=== PATIENT | female | born 1990 | race Two or more races ===

== ENCOUNTER 2020-01-23 17:43 | Outpatient (REF) | payer MEDICAID, SELFPAY | END 2020-01-23 17:44 | disposition home or self-care (01) | LOC: HO.LAB 17:43 | PROVIDERS: Visit Provider Internal Medicine | DX: Z20.828 Contact with and (suspected) exposure to other viral communicable diseases (principal) | CPT/HCPCS: 87635 ==

== ENCOUNTER 2020-01-25 17:26 | Outpatient (REF) | payer MEDICAID, SELFPAY | END 2020-01-25 17:27 | disposition home or self-care (01) | LOC: HO.LAB 17:26 | PROVIDERS: Visit Provider Internal Medicine | DX: Z20.828 Contact with and (suspected) exposure to other viral communicable diseases (principal) | CPT/HCPCS: 87635 ==

== ENCOUNTER 2020-07-01 14:15 | Outpatient (REF) | payer MEDICAID, SELFPAY ==
[2020-07-02 11:14] LABS: SARS COV2 PCR INHOUSE NEGATIVE (Negative)
== END 2020-07-01 14:16 | disposition home or self-care (01) ==
LOC: HO.LAB 14:15
PROVIDERS: Visit Provider Internal Medicine
DX: Z20.822 Contact with and (suspected) exposure to COVID-19 (principal)
CPT/HCPCS: C9803; U0003

== ENCOUNTER 2021-02-23 18:43 | Emergency (ER) | payer MEDICAID, SELFPAY ==
[2021-02-23 21:08] VITALS: BP 151/93; PULSE 93; RESP 16; TEMP 36.3; O2SAT 97; BMI 44.2
--- NOTE | 2021-02-23 21:10 | ED_ITS ---
HPI - URI/Sore Throat General Chief Complaint: Upper Respiratory Symptoms Stated Complaint: Flu like symptoms Time Seen by Provider: 02/23/21 21:10 Source: patient Mode of arrival: ambulatory Limitations: no limitations History of Present Illness HPI Narrative: 30-year-old female previously healthy here with complaints of cough for about 5 days with sick contact from both of her children. no fevers, chills, shortness of breath or chest pain. Related Data Allergies Allergy/AdvReac Type Severity Reaction Status Date / Time No Known Allergies Allergy Unverified 12/20/19 17:21 Review of Systems Review of Systems: Yes all other systems are reviewed and are negative Constitutional: Constitutional: Reports no additional constitutional complaints, Denies body ache(s), Denies chills, Denies fever(s), Denies headache (s) and Denies weakness Eyes: Eyes: Reports no additional eye complaints and Denies change in vision ENT: Reports system reviewed and no additional complaints, except as documented, Denies dizziness, Denies headache(s), Denies nasal congestion, Denies nasal discharge and Denies neck pain Cardiovascular: Cardiovascular: Reports no additional cardiovascular complaints, Denies chest pain, Denies leg edema and Denies dyspnea Respiratory: Respiratory: Reports no additional respiratory complaints, Reports cough and Denies dyspnea Gastrointestinal: Gastrointestinal: Reports no additional gastrointestinal complaints, Denies abdominal pain, Denies diarrhea, Denies nausea and Denies vomiting Genitourinary: Genitourinary: Reports no additional female genitourinary complaints and Denies urinary incontinence Musculoskeletal: Musculoskeletal: Reports no additional musculoskeletal complaints, Denies back pain, Denies arthralgias, Denies joint swelling, Denies neck pain, Denies numbness and Denies tingling Integumentary/Breasts: Skin/Breast: Reports system reviewed and no additional complaints, except as docu and Denies rash Neurologic: Reports system reviewed and no additional complaints, except as documented, Denies Abnormal speech present, Denies dizziness, Denies headache(s), Denies numbness, Denies tingling and Denies weakness PMFSH Past Medical History Attestation statement: The following information was validated with the patient. Source: old records reviewed and nursing notes reviewed Social History Social History Advance Directives: No Advance Directives Information Provided: No Patient : No Physical Exam Vital Signs: Vital Signs: Last Vital Signs Temp 97.4 F 02/23/21 21:08 Pulse 93 02/23/21 21:08 Resp 16 02/23/21 21:08 BP 151/93 H 02/23/21 21:08 Pulse Ox 97 02/23/21 21:08 Body Mass Index 44.2 Const: General: cooperative, healthy appearing, comfortable and no acute distress Orientation/consciousness: patient oriented x3 Limitations: no limitations HENMT: Head: Yes normal to inspection Ears: hearing grossly normal bilaterally General nose exam: Normal external nose present Face and sinus: Yes normal facial exam Mouth: Normal oral and palatal mucosa present Throat: Yes posterior oropharynx normal Eyes: General: appearance normal, both eyes and all related structures Pupils: Equal, round and reactive pupils present Neck: Neck: Yes normal visual inspection Chest: Chest palpation & inspection: normal inspection of the chest Resp: Effort & Inspection: normal respiratory effort Auscultation: clear to auscultation bilaterally Cardio: Rate: regular rate Rhythm: regular rhythm Peripheral pulses: Peripheral pulses 2+ throughout GI: Inspection: Yes normal to inspection Palpation (GI): Soft to palpation and nontender Auscultation: normal bowel sounds Back/Spine/Pelvis: Thoracic/Lumbar Spine: thoracic and lumbar spine normal to inspection Skin: General skin exam: no rashes or lesions noted Neuro: General: patient oriented x3, no focal motor deficits and normal sensation to monofilament Cranial nerves: Yes Equal, round and reactive pupils present Cognition (Neuro): normal cognition Speech: No Abnormal speech present Gait exam (Neuro): Normal gait present Motor exam (neuro): 5/5 motor strength present throughout Extrem: General: Yes normal to inspection Course Course Course Narrative: URI symptoms for 5 days with sick contact. Will check COVID screen exam is benign, nontoxic-appearing, lung sounds are clear 2144- COVID screen is negative. Likely viral. Patient is well-appearing. Reviewed worrisome signs and symptoms of when to return to the emergency department. Comfortable discharge home. MDM - URI/Sore Throat Medical Records Attestation: I reviewed the patient's medical records. Lab Data Attestation: I reviewed the patient's lab results. Labs: Lab Results 02/23/21 Range/Units 20:34 Influenza Type A (PCR) NEGATIVE (Negative) Influenza Type B (PCR) NEGATIVE (Negative) RSV RNA Qual (PCR) NEGATIVE (Negative) SARS-CoV-2 RNA (RT-PCR) NEGATIVE (Negative) Discharge Plan Discharge Clinical Impression: Viral infection Patient Disposition: Home, Self-Care Instructions: Viral Syndrome (ED) Additional Instructions: increase fluids, rest your test for COVID, flu and RSV are negative Retest in 48 hours for persistent symptoms Referrals: Physician,Unknown J [Primary Care Provider] - 2 days
[2021-02-23 21:19] LABS: Influenza A PCR NEGATIVE (Negative); Influenza B PCR NEGATIVE (Negative); Resp Syncy Virus RNA Qual PCR NEGATIVE (Negative); SARS COV2 PCR INHOUSE NEGATIVE (Negative)
== END 2021-02-23 22:29 | disposition home or self-care (01) ==
PROVIDERS: Emergency Provider Emergency Medicine
DX: B34.9 Viral infection, unspecified (principal); Z20.822 Contact with and (suspected) exposure to COVID-19; R05.9 Cough, unspecified
CPT/HCPCS: 0241U; 36415; 99283

== ENCOUNTER 2021-10-18 21:49 | Emergency (ER) | payer MEDICAID, SELFPAY ==
[2021-10-18 22:32] VITALS: BP 136/63; PULSE 83; RESP 18; TEMP 36.1; O2SAT 98; BMI 53.1
[2021-10-18 22:57] LABS: Strep A Nucleic Acid Negative (Negative)
[2021-10-18 23:08] LABS: COVID-19 Test Negative (Negative)
--- NOTE | 2021-10-19 01:38 | ED.URI ---
HPI - URI/Sore Throat General Chief Complaint: Upper Respiratory Symptoms Stated Complaint: gen fatigue, cp? Time Seen by Provider: 10/19/21 01:15 Source: patient Mode of arrival: ambulatory History of Present Illness HPI Narrative: 31-year-old female without significant past medical history presents with 2 days of dry cough, sore throat, but denies any ear pain/ fever/ chills/body aches/headache and otherwise denies GI or symptoms. She does endorse that her home COVID testing was negative. Related Data Allergies Allergy/AdvReac Type Severity Reaction Status Date / Time No Known Allergies Allergy Unverified 12/20/19 17:21 Review of Systems Review of Systems: Pertinent positives and negatives as stated in HPI 10 point review of systems is otherwise negative. [facility] Past Medical History Source: nursing notes reviewed Social History Social History Advance Directives: No Advance Directives Information Provided: No Physical Exam Vital Signs: Vital Signs: Last Vital Signs Temp 97.0 F 10/18/21 22:32 Pulse 83 10/18/21 22:32 Resp 18 10/18/21 22:32 BP 136/63 10/18/21 22:32 Pulse Ox 98 10/18/21 22:32 O2 Del Method 10/18/21 22:32 BMI result Body Mass Index 53.1 VITAL SIGNS: Reviewed. GENERAL: Well developed, well nourished, in no acute distress. HEAD: Normocephalic/atraumatic EYES: PERRLA, EOMI EARS: Ext canals without abnormality, TMs non-bulging and non-erythematous NOSE: Nares patent bilateral OROPHARYNX: no oral lesions noted, posterior pharynx clear and non-erythematous without noted tonsillar enlargement/erythema/exudates NECK: Supple, no adenopathy LUNGS: Normal breath sounds. No adventitious sounds or accessory muscle use. SpO2<98> CARDIOVASCULAR: Regular rate and rhythm without noted murmurs ABDOMEN: Soft, non-tender, non-distended with bowel sounds. MUSCULOSKELETAL: No tenderness, deformities, or effusions noted on gross inspection. EXTREMITIES: No cyanosis, clubbing or edema. SKIN: Inspection of the skin reveals no rashes NEUROLOGIC: Alert and oriented x 4. Strength and sensation to light touch were grossly intact x 4. Course Course Course Narrative: 31-year-old female with history and clinical presentation consistent with URI/ viral symptoms and on review of all investigations there is no evidence to suggest strep throat or COVID-19. Patient is afebrile, easy breathing with good oxygenation on room air and will otherwise be discharged home in stable condition. MDM - URI/Sore Throat Lab Data Labs: Lab Results 10/18/21 10/18/21 Range/Units 22:36 22:36 COVID-19 ([facility]) Negative (Negative) COVID-19 Clin Com See Note S. pyogenes GrpA CHARITO Negative (Negative) Discharge Plan Discharge Clinical Impression: Upper respiratory infection Patient Disposition: Home, Self-Care Instructions: Upper Respiratory Infection (ED) Additional Instructions: Recommend [id number] Tylenol/ ibuprofen as needed for pain control , headache, sore throat. Recommend bedside cool mist humidifier. You should continue to test for COVID-19 for the next 2 days. Return to the ER if you have worsening symptoms.
[2021-10-19 01:51] VITALS: BP 116/50; PULSE 76; TEMP 37.1; O2SAT 98
[2021-10-19 01:58] LABS: Appearance Urine CLEAR; Color Urine YELLOW; Glucose Urine UA NEG (NEG); Leukocyte Esterase Urine NEG (NEG); Nitrite Urine NEG (NEG); Specific Gravity - Urine >= 1.030 (1.005-1.025); Urine Blood NEG (NEG); Urine Ketones NEG (NEG); Urine Protein NEG (NEG-TRACE)
[2021-10-19 02:01] LABS: UPreg QC Valid YES; Urine Pregnancy NEGATIVE (NEGATIVE)
== END 2021-10-19 02:03 | disposition home or self-care (01) ==
PROVIDERS: Emergency Provider Student in an Organized Health Care Education/Training Program
DX: J06.9 Acute upper respiratory infection, unspecified (principal); Z20.822 Contact with and (suspected) exposure to COVID-19; Z79.899 Other long term (current) drug therapy
CPT/HCPCS: 81003; 81025; 87635; 87651; 99283

== ENCOUNTER 2022-08-22 22:31 | Emergency (ER) | payer MEDICAID, SELFPAY ==
[2022-08-22 22:36] VITALS: BP 173/97; PULSE 90; RESP 20; TEMP 37; O2SAT 100; BMI 50.8
[2022-08-22 22:59] LABS: MANUAL DIFF FLAG NO
[2022-08-22 23:01] LABS: Basophils Percent Auto 0.2 % (0-2); Eosinophils Percent Auto 0.3 % (0-4); Hematocrit 38.4 % (37.0-47.0); Hemoglobin 12.5 g/dl (12.0-16.0); Imm Gran Abs Auto 0.04 X10*3/uL (0.00-0.03); Imm Gran Pct Auto 0.4 % (0.0-0.4); Lymphocytes Absolute Auto 2.4 X10*3/uL (1.2-4.9); Lymphocytes Percent Auto 21.2 % (20-40); Mean Corpuscular HGB Conc 32.6 g/dl (31.0-35.0); Mean Corpuscular Volume 82.9 fL (80.0-98.0); Mean Platelet Volume 10.1 fL (9.4-12.3); Monocytes Absolute Auto 0.4 X10*3/uL (0.1-1.2); Monocytes Percent Auto 3.8 % (2-11); Neutrophils Absolute Auto 8.3 x10*3/uL (2.0-8.3); Neutrophils Percent Auto 74.1 % (45-73); Platelet Count 284 X10*3/uL (160-400); Red Blood Count 4.63 X10*6/uL (4.20-5.50); Red Cell Distribution Width 13.7 % (11.0-16.0); White Blood Count 11.1 X10*3/uL (4.8-10.8)
[2022-08-22 23:02] LABS: Appearance Urine Clear; Color Urine Yellow; Glucose Urine UA Negative (Negative); Leukocyte Esterase Urine Trace (Negative); Nitrite Urine Negative (Negative); UMIC TRIGGER UACC YES; Urine Blood Large (3+) (Negative); Urine Ketones Negative (Negative); Urine Protein Negative (Neg-Trace)
[2022-08-22 23:05] LABS: Bacteria Urine 1+ (None Seen); Hyaline Casts Urine 0-2 /LPF (0-2); RBC Urine >20 /HPF (0-2); WBC Urine 0-5 /HPF (0-5)
[2022-08-22 23:07] LABS: UPreg QC Valid YES; Urine Pregnancy NEGATIVE (NEGATIVE)
[2022-08-22 23:21] LABS: Alanine Aminotransferase 35 U/L (0-31); Albumin Level 4.4 g/dL (3.5-5.0); Alkaline Phosphatase 64 U/L (39-117); Anion Gap 11 (12-20); Aspartate Amino Transferase 23 U/L (5-31); Bilirubin Direct 0.1 mg/dL (0.0-0.5); Bilirubin Total 0.4 mg/dL (0.0-1.0); Blood Urea Nitrogen 10 mg/dL (9-16); Calcium 9.5 mg/dL (8.4-10.2); Carbon Dioxide 25 mmol/L (22-29); Chloride 104 mmol/L (96-108); Creatinine Clr Calc Pharmacy 126.4; Estimated Glomerular Filt Rate > 60; Glucose Random 135 mg/dL (60-115); Lipase 21 U/L (8-78); Sodium 136 mmol/L (135-145); Total Protein 7.2 g/dL (6.5-8.0)
[2022-08-22 23:22] LABS: HCG Quantitative < 2 mIU/mL
[2022-08-22 23:40] VITALS: BP 132/63; PULSE 76; RESP 18; TEMP 36.9; O2SAT 100
--- NOTE | 2022-08-22 23:48 | ED.FEMALEGU ---
HPI - Female Genitourinary General Chief complaint: Vaginal Bleeding Stated complaint: possible miscarriage, abd pain Time Seen by Provider: 08/22/22 23:44 Source: patient Mode of arrival: ambulatory Limitations: no limitations History of Present Illness HPI Narrative: Patient comes to the emergency room complaining of vaginal bleeding. Patient states that she passed a blood clot earlier today. In triage, patient stated that she is changing her pad every hour. However, when I spoke to the patient she denied bleeding this much. Patient states she thinks this may be a miscarriage, she had a positive test at home 2 weeks ago. Patient complaining of abdominal cramping. Denies fever chills, no dysuria, no flank pain. Related Data Allergies Allergy/AdvReac Type Severity Reaction Status Date / Time No Known Allergies Allergy Verified 08/22/22 22:39 Review of Systems Review of Systems: Constitutional : No Weight loss, No Fever, No Chills, No Night Sweats, No Fatigue, No Malaise ENT/Mouth : No Hearing loss, No Ear Pain, No Nasal Congestion, No Sinus Pain, No Hoarseness, No sore throat, No Rhinorrhea, No Swallowing Difficulty Eyes: No Eye Pain, No Swelling, No Redness, No Foreign Body, No Discharge, No Vision Changes Cardiovascular : No Chest Pain, No SOB, No Dyspnea on Exertion, No Orthopnea, No Edema, No Palpitations Respiratory : No Cough, No Sputum, No Wheezing, No Smoke Exposure, No Dyspnea Gastrointestinal : No Nausea, No Vomiting, No Diarrhea, No Constipation, mild abdominal cramping, No Hematochezia, No Melena Genitourinary : Complaining of vaginal bleeding, No Dysuria, No Urinary Frequency, No Hematuria, No Urinary Incontinence, No Urgency, No Flank Pain, No Urinary Flow Changes, No Hesitancy Musculoskeletal : No joint pain, No Myalgias, No Joint Swelling Skin : No Skin Lesions, No rash Neuro : No Weakness, No Numbness, No Paresthesias, No Loss of Consciousness, No Dizziness, No Headache Psych : No Anxiety/Panic, No Depression, No SI/HI/AH/VH, No Social Issues, Heme/Lymph: No Bruising, No Bleeding,No Lymphadenopathy Endocrine : No Polyuria, No Polydipsia, No Temperature Intolerance Physical Exam Vital Signs: Vital Signs: Last Vital Signs Temp 98.4 F 08/22/22 23:40 Pulse 76 08/22/22 23:40 Resp 18 08/22/22 23:40 BP 132/63 08/22/22 23:40 Pulse Ox 100 08/22/22 23:40 O2 Del Method Room Air 08/22/22 23:40 BMI result Body Mass Index 50.8 Const: Other: Appearance: Alert. Oriented X3. No acute distress. Eyes: Pupils equal, round and reactive to light. ENT: Pharynx normal. Neck: Normal inspection. Neck supple. No lymph nodes noted. No crepitus CVS: Normal heart rate and rhythm. Pulses normal. Normal S1 and S2 Respiratory: No respiratory distress. Breath sounds normal. No Wheezing. No rales Abdomen: Soft and nontender. No rigidity. No distention. Skin: Skin warm and dry. Normal skin color. Normal skin turgor. Extremities: No lower extremity edema. No Lacerations. No Rash Neuro: Oriented X 3. No motor deficit. No sensory deficit. Moving all extremities. No slurred speech. CN 2 through 12 grossly intact Psych: calm, cooperative, normal affect Medical Decision Making Medical Decision Making [facility] Narrative: -I discussed with the patient that the beta hCG level quant is negative. Patient not , likely having her normal menstrual period, usually, patient does menstruate around this time of the month. -patient 1 dose of morphine 2 mg, patient ready for discharge. -patient was happy to be informed that she is not Lab Data [facility] Lab Attestation statement: I reviewed the patient's lab results. 08/22/22 22:50 08/22/22 22:50 Labs: Lab Results 08/22/22 08/22/22 08/22/22 Range/Units 22:50 22:50 22:50 WBC 11.1 H (4.8-10.8) X10*3/uL RBC 4.63 (4.20-5.50) X10*6/uL Hgb 12.5 (12.0-16.0) g/dl Hct 38.4 (37.0-47.0) % MCV 82.9 (80.0-98.0) fL MCH 27.0 (27.0-33.0) pg MCHC 32.6 (31.0-35.0) g/dl RDW 13.7 (11.0-16.0) % Plt Count 284 (160-400) X10*3/uL MPV 10.1 (9.4-12.3) fL Immature Gran % (Auto) 0.4 (0.0-0.4) % Neut % (Auto) 74.1 H (45-73) % Lymph % (Auto) 21.2 (20-40) % [place] % (Auto) 3.8 (2-11) % Eos % (Auto) 0.3 (0-4) % Baso % (Auto) 0.2 (0-2) % Lymph # (Auto) 2.4 (1.2-4.9) X10*3/uL [place] # (Auto) 0.4 (0.1-1.2) X10*3/uL Eos # (Auto) 0.0 (0.0-0.4) X10*3/uL Baso # (Auto) 0.0 (0.0-0.2) X10*3/uL Abs Immat Gran (auto) 0.04 H (0.00-0.03) X10*3/uL Absolute Neuts (auto) 8.3 (2.0-8.3) x10*3/uL Absolute Nucleated RBC 0.000 (0.0-0.012) X10*3/uL Nucleated RBC % (auto) 0.0 (0.0-0.2) /100WBC Sodium 136 (135-145) mmol/L Potassium 4.0 (3.3-5.1) mmol/L Chloride 104 (96-108) mmol/L Carbon Dioxide 25 (22-29) mmol/L Anion Gap 11 L (12-20) BUN 10 (9-16) mg/dL Creatinine 0.85 (0.5-1.4) mg/dL Estim Creat Clear Calc 126.4 Estimated GFR > 60 Random Glucose 135 H (60-115) mg/dL Calcium 9.5 (8.4-10.2) mg/dL Total Bilirubin 0.4 (0.0-1.0) mg/dL Direct Bilirubin 0.1 (0.0-0.5) mg/dL AST 23 (5-31) U/L ALT 35 H (0-31) U/L Alkaline Phosphatase 64 (39-117) U/L Total Protein 7.2 (6.5-8.0) g/dL Albumin 4.4 (3.5-5.0) g/dL Lipase 21 (8-78) U/L Beta HCG, Quant < 2 mIU/mL Urine Color Yellow Urine Appearance Clear Urine pH 7.0 (5.0-9.0) Ur Specific [place] 1.020 (1.005-1.025) Urine Protein Negative (Neg-Trace) mg/dL Urine Glucose (UA) Negative (Negative) mg/dL Urine Ketones Negative (Negative) mg/dL Urine Blood Large (3+) H (Negative) Urine Nitrite Negative (Negative) Ur Leukocyte Esterase Trace H (Negative) Urine RBC >20 H (0-2) /HPF Urine WBC 0-5 (0-5) /HPF Ur Squamous Epith Cells 6-10 (0-2) /HPF Urine Bacteria 1+ (None Seen) Hyaline Casts 0-2 (0-2) /LPF Urine Test (NEGATIVE) 08/22/22 Range/Units 22:50 WBC (4.8-10.8) X10*3/uL RBC (4.20-5.50) X10*6/uL Hgb (12.0-16.0) g/dl Hct (37.0-47.0) % MCV (80.0-98.0) fL MCH (27.0-33.0) pg MCHC (31.0-35.0) g/dl RDW (11.0-16.0) % Plt Count (160-400) X10*3/uL MPV (9.4-12.3) fL Immature Gran % (Auto) (0.0-0.4) % Neut % (Auto) (45-73) % Lymph % (Auto) (20-40) % [place] % (Auto) (2-11) % Eos % (Auto) (0-4) % Baso % (Auto) (0-2) % Lymph # (Auto) (1.2-4.9) X10*3/uL [place] # (Auto) (0.1-1.2) X10*3/uL Eos # (Auto) (0.0-0.4) X10*3/uL Baso # (Auto) (0.0-0.2) X10*3/uL Abs Immat Gran (auto) (0.00-0.03) X10*3/uL Absolute Neuts (auto) (2.0-8.3) x10*3/uL Absolute Nucleated RBC (0.0-0.012) X10*3/uL Nucleated RBC % (auto) (0.0-0.2) /100WBC Sodium (135-145) mmol/L Potassium (3.3-5.1) mmol/L Chloride (96-108) mmol/L Carbon Dioxide (22-29) mmol/L Anion Gap (12-20) BUN (9-16) mg/dL Creatinine (0.5-1.4) mg/dL Estim Creat Clear Calc Estimated GFR Random Glucose (60-115) mg/dL Calcium (8.4-10.2) mg/dL Total Bilirubin (0.0-1.0) mg/dL Direct Bilirubin (0.0-0.5) mg/dL AST (5-31) U/L ALT (0-31) U/L Alkaline Phosphatase (39-117) U/L Total Protein (6.5-8.0) g/dL Albumin (3.5-5.0) g/dL Lipase (8-78) U/L Beta HCG, Quant mIU/mL Urine Color Urine Appearance Urine pH (5.0-9.0) Ur Specific [place] (1.005-1.025) Urine Protein (Neg-Trace) mg/dL Urine Glucose (UA) (Negative) mg/dL Urine Ketones (Negative) mg/dL Urine Blood (Negative) Urine Nitrite (Negative) Ur Leukocyte Esterase (Negative) Urine RBC (0-2) /HPF Urine WBC (0-5) /HPF Ur Squamous Epith Cells (0-2) /HPF Urine Bacteria (None Seen) Hyaline Casts (0-2) /LPF Urine Test NEGATIVE (NEGATIVE) Discharge Plan Discharge Clinical Impression: Vaginal bleeding Patient Disposition: Home, Self-Care Additional Instructions: Please follow-up with your primary care physician tomorrow. If you have any worsening or new symptoms, please return to the emergency room or call 911
[2022-08-23] MEDS: Morphine Sulfate 2 MG/ML CARTRIDGE IM (00:35)
== END 2022-08-23 00:39 | disposition home or self-care (01) ==
PROVIDERS: Emergency Provider Emergency Medicine
DX: N93.9 Abnormal uterine and vaginal bleeding, unspecified (principal); Z79.899 Other long term (current) drug therapy
CPT/HCPCS: 36415; 80048; 80076; 81001; 81003; 81025; 83690; 84702; 85025; 96372; 99283; 99284; J2270

== ENCOUNTER 2022-10-10 23:06 | Emergency (ER) | payer MEDICAID, SELFPAY ==
[2022-10-10 23:07] VITALS: BP 157/101; PULSE 101; RESP 16; TEMP 36.7; O2SAT 100; BMI 50.5
--- NOTE | 2022-10-11 00:17 | MHC.EDTECH ---
Labs and UACC obtained in triage area, sent to lab
[2022-10-11 00:45] LABS: Anion Gap 14 (12-20); Blood Urea Nitrogen 13 mg/dL (9-16); Calcium 10.2 mg/dL (8.4-10.2); Carbon Dioxide 24 mmol/L (22-29); Chloride 106 mmol/L (96-108); Creatinine Clr Calc Pharmacy 138.9; Estimated Glomerular Filt Rate > 60; Glucose Random 91 mg/dL (60-115); Potassium 3.6 mmol/L (3.3-5.1); Sodium 140 mmol/L (135-145)
--- NOTE | 2022-10-11 01:06 | PC.NURSE ---
Called patient @ 0100 in the WR with no response.
[2022-10-11 01:54] VITALS: BP 140/73; PULSE 88; RESP 19; TEMP 36.6; O2SAT 99
[2022-10-11 03:29] VITALS: BP 129/74; PULSE 85; RESP 18; TEMP 36.4; O2SAT 97
--- NOTE | 2022-10-11 03:56 | ED.GENADULT ---
HPI - General Adult General Chief complaint: General Medical Stated complaint: Flank pain Time Seen by Provider: 10/11/22 03:55 Source: patient Mode of arrival: ambulatory Limitations: no limitations History of Present Illness HPI narrative: 32-year-old female who presents emergency department for evaluation of frequency, urgency, dysuria and right flank. Patient states that she had gradual onset of right flank pain yesterday morning. She describes the pain is a stabbing sensation which is moderate intensity. Patient also noted urinary frequency and dysuria. She denied fever, chills, nausea, vomiting, diarrhea. She states that her symptoms feel similar to her urinary tract infection that she had in the past. She states she has not had frequent urinary tract infections and cannot remember when she last had a urinary tract infection. Related Data Previous Rx's Medication Instructions Recorded acetaminophen 500 mg tablet 1,000 mg PO Q6H PRN fever or pain 10/11/22 (Tylenol Extra Strength) #20 tabs cephalexin 500 mg capsule 500 mg PO QID 7 days #28 caps 10/11/22 ibuprofen 400 mg tablet 400 mg PO TID PRN fever or pain 10/11/22 #30 tabs phenazopyridine 200 mg tablet 200 mg PO TID PRN Burning with 10/11/22 (Pyridium) urination 3 days #9 tabs Allergies Allergy/AdvReac Type Severity Reaction Status Date / Time No Known Allergies Allergy Verified 08/22/22 22:39 Review of Systems Review of Systems: Yes all other systems are reviewed and are negative [facility] Past Medical History [facility] Narrative: Past medical history: None. Past surgical history: None. Social history she denies tobacco, alcohol and drug use Social History Social History Advance Directives: No Advance Directives Information Provided: Yes Physical Exam ED Vital Signs: Vital Signs - 24 hr 10/10/22 23:07 10/11/22 01:54 10/11/22 03:29 Temperature 98.1 F 97.9 F 97.6 F Pulse Rate 101 H 88 85 Respiratory Rate 16 19 18 Blood Pressure 157/101 H 140/73 H 129/74 Pulse Oximetry 100 99 97 Oxygen Delivery Method Room Air Room Air Room Air BMI result Body Mass Index 50.5 Const General: cooperative and no acute distress Orientation/consciousness: oriented to person and oriented to place Limitations: no limitations HENWA Head: Yes normal to inspection, Yes normocephalic and Yes atraumatic Ears: external ears normal General nose exam: Normal external nose present Face and sinus: Yes normal facial exam Mouth: Normal oral and palatal mucosa present Throat: Yes posterior oropharynx normal Eyes General: appearance normal, both eyes and all related structures Neck Neck: Yes normal visual inspection, Yes no lymphadenopathy, Yes trachea midline and Yes supple Chest Chest palpation & inspection: normal inspection of the chest and normal palpation of entire chest wall Resp Effort & Inspection: normal respiratory effort and able to speak in complete sentences Auscultation: clear to auscultation bilaterally Cardio Rate: regular rate Rhythm: regular rhythm Heart sounds: S1 normal heart sound present, S2 normal heart sound present and no murmurs GI Other: Patient's abdomen is soft, nondistended, she has normoactive bowel sounds, she has mild suprapubic tenderness, no rebound, no voluntary or involuntary guarding Other: Patient has mild to moderate right CVA tenderness Skin General skin exam: no rashes or lesions noted Neuro General: oriented to person and oriented to place Cognition (Neuro): normal cognition Motor exam (neuro): 5/5 motor strength present throughout Extrem General: Yes normal to inspection Psych Appearance: grossly normal Speech and movement: Normal speech and movement present Affect: normal affect Attitude: cooperative Medical Decision Making Medical Decision Making MDM Narrative: 32-year-old female who presents emergency department for evaluation of right flank pain, frequency, urgency and dysuria with symptoms starting yesterday . She denied fever, chills, nausea, vomiting or diarrhea. Following tests were ordered on the patient: CBC, BMP, urine test, urinalysis. 0408: Patient's urinalysis was positive for urinary tract infection. Exam was significant for suprapubic tenderness and right flank tenderness she was consistent with pyelonephritis. Patient was treated with the following oral medications in the emergency department: Keflex 500 mg, Pyridium 200 mg and ibuprofen 400 mg She was prescribed Keflex 500 mg 3 times a day for 7 days, Pyridium 20 mg 3 times a day as needed for dysuria, ibuprofen and Tylenol She was given printed and verbal instructions discharged home Differential Diagnosis Differential Diagnoses: The differential diagnosis associated with the presentation includes Differential diagnosis includes was not limited to bladder infection, pyelonephritis, ectopic , renal colic, ureteral stone Admission/Observation Consideration of admission/observation: Escalation of care including admission/observation considered Lab Data MDM Lab Attestation statement: I reviewed the patient's lab results. My independent interpretation patient's laboratory evaluation is as follows: Elevated WBC 64481. BMP was normal. test was negative. Urinalysis revealed positive leukocyte esterase positive nitrates. Microscopic revealed greater than 50 WBCs, 4+ bacteria, no significant squamous cells. 10/11/22 00:15 10/11/22 00:15 Labs: Lab Results 10/11/22 10/11/22 10/11/22 Range/Units 00:15 00:15 00:15 WBC 11.5 H (4.8-10.8) X10*3/uL RBC 4.87 (4.20-5.50) X10*6/uL Hgb 13.2 (12.0-16.0) g/dl Hct 40.5 (37.0-47.0) % MCV 83.2 (80.0-98.0) fL MCH 27.1 (27.0-33.0) pg MCHC 32.6 (31.0-35.0) g/dl RDW 13.2 (11.0-16.0) % Plt Count 284 (160-400) X10*3/uL MPV 10.4 (9.4-12.3) fL Immature Gran % (Auto) 0.3 (0.0-0.4) % Neut % (Auto) 68.3 (45-73) % Lymph % (Auto) 25.1 (20-40) % [place] % (Auto) 5.9 (2-11) % Eos % (Auto) 0.3 (0-4) % Baso % (Auto) 0.1 (0-2) % Lymph # (Auto) 2.9 (1.2-4.9) X10*3/uL [place] # (Auto) 0.7 (0.1-1.2) X10*3/uL Eos # (Auto) 0.0 (0.0-0.4) X10*3/uL Baso # (Auto) 0.0 (0.0-0.2) X10*3/uL Abs Immat Gran (auto) 0.03 (0.00-0.03) X10*3/uL Absolute Neuts (auto) 7.9 (2.0-8.3) x10*3/uL Absolute Nucleated RBC 0.000 (0.0-0.012) X10*3/uL Nucleated RBC % (auto) 0.0 (0.0-0.2) /100WBC Sodium 140 (135-145) mmol/L Potassium 3.6 (3.3-5.1) mmol/L Chloride 106 (96-108) mmol/L Carbon Dioxide 24 (22-29) mmol/L Anion Gap 14 (12-20) BUN 13 (9-16) mg/dL Creatinine 0.77 (0.5-1.4) mg/dL Estim Creat Clear Calc 138.9 Estimated GFR > 60 Random Glucose 91 (60-115) mg/dL Calcium 10.2 D (8.4-10.2) mg/dL Urine Color Yellow Urine Appearance Cloudy Urine pH 6.5 (5.0-9.0) Ur Specific [place] 1.025 (1.005-1.025) Urine Protein Negative (Neg-Trace) mg/dL Urine Glucose (UA) Negative (Negative) mg/dL Urine Ketones 15 (Negative) mg/dL Urine Blood Negative (Negative) Urine Nitrite Positive H (Negative) Ur Leukocyte Esterase Moderate (2+) H (Negative) Urine RBC 0-2 (0-2) /HPF Urine WBC >50 H (0-5) /HPF Ur Squamous Epith Cells 3-5 (0-2) /HPF Urine Bacteria 4+ (None Seen) Hyaline Casts 0-2 (0-2) /LPF Urine Test (NEGATIVE) 10/11/22 Range/Units 00:15 WBC (4.8-10.8) X10*3/uL RBC (4.20-5.50) X10*6/uL Hgb (12.0-16.0) g/dl Hct (37.0-47.0) % MCV (80.0-98.0) fL MCH (27.0-33.0) pg MCHC (31.0-35.0) g/dl RDW (11.0-16.0) % Plt Count (160-400) X10*3/uL MPV (9.4-12.3) fL Immature Gran % (Auto) (0.0-0.4) % Neut % (Auto) (45-73) % Lymph % (Auto) (20-40) % [place] % (Auto) (2-11) % Eos % (Auto) (0-4) % Baso % (Auto) (0-2) % Lymph # (Auto) (1.2-4.9) X10*3/uL [place] # (Auto) (0.1-1.2) X10*3/uL Eos # (Auto) (0.0-0.4) X10*3/uL Baso # (Auto) (0.0-0.2) X10*3/uL Abs Immat Gran (auto) (0.00-0.03) X10*3/uL Absolute Neuts (auto) (2.0-8.3) x10*3/uL Absolute Nucleated RBC (0.0-0.012) X10*3/uL Nucleated RBC % (auto) (0.0-0.2) /100WBC Sodium (135-145) mmol/L Potassium (3.3-5.1) mmol/L Chloride (96-108) mmol/L Carbon Dioxide (22-29) mmol/L Anion Gap (12-20) BUN (9-16) mg/dL Creatinine (0.5-1.4) mg/dL Estim Creat Clear Calc Estimated GFR Random Glucose (60-115) mg/dL Calcium (8.4-10.2) mg/dL Urine Color Urine Appearance Urine pH (5.0-9.0) Ur Specific [place] (1.005-1.025) Urine Protein (Neg-Trace) mg/dL Urine Glucose (UA) (Negative) mg/dL Urine Ketones (Negative) mg/dL Urine Blood (Negative) Urine Nitrite (Negative) Ur Leukocyte Esterase (Negative) Urine RBC (0-2) /HPF Urine WBC (0-5) /HPF Ur Squamous Epith Cells (0-2) /HPF Urine Bacteria (None Seen) Hyaline Casts (0-2) /LPF Urine Test NEGATIVE (NEGATIVE) Prescription Management I considered prescription management with: Pain Medication and Antibiotic Discharge Plan Discharge Clinical Impression: Pyelonephritis, Right flank pain Patient Disposition: Home, Self-Care Instructions: Kidney Infection (ED) Additional Instructions: Your blood work was unremarkable. Your test was negative. Your urine test was consistent with a urine infection. Your symptoms are concerning for a bladder infection and right kidney infection. Take Keflex (cephalexin) 500 mg pills, 1 pill 3 times a day for 7 days. Take Pyridium 200 mg pills, 1 pill 3 times a day as needed for discomfort/burning with urination Take ibuprofen 200 mg pills, 2 pills every 6 hours as needed for pain or fever. Take Tylenol (acetaminophen) 500 mg pills, 2 pills every 6 hours as needed for pain or fever. Follow-up with your doctor in 2 days. Please return to the emergency department if your symptoms get worse or if you develop any symptoms that are concerning to you. Prescriptions: New phenazopyridine [Pyridium] 200 mg tablet 200 mg PO TID PRN (Reason: Burning with urination) 3 Days Qty: 9 0RF acetaminophen [Tylenol Extra Strength] 500 mg tablet 1,000 mg PO Q6H PRN (Reason: fever or pain) Qty: 20 0RF cephalexin 500 mg capsule 500 mg PO QID 7 Days Qty: 28 0RF ibuprofen 400 mg tablet 400 mg PO TID PRN (Reason: fever or pain) Qty: 30 0RF
== END 2022-10-11 04:29 | disposition home or self-care (01) ==
PROVIDERS: Emergency Provider Emergency Medicine Emergency Medical Services
DX: N12 Tubulo-interstitial nephritis, not specified as acute or chronic (principal); R10.9 Unspecified abdominal pain; Z79.899 Other long term (current) drug therapy
CPT/HCPCS: 36415; 80048; 81001; 81025; 85025; 87086; 87147; 99283; 99284

== ENCOUNTER 2023-05-31 19:13 | Outpatient (REF) | payer MEDICAID, SELFPAY ==
[2023-06-02 17:13] LABS: C. trachomatis RNA TMA NOT DETECTED (NOT DETECTED); Candida glabrata RNA NOT DETECTED (NOT DETECTED); Candida species RNA NOT DETECTED (NOT DETECTED); N. gonorrhoeae RNA TMA NOT DETECTED (NOT DETECTED); Trichomonas vaginalis RNA NOT DETECTED (NOT DETECTED)
== END 2023-05-31 19:14 | disposition home or self-care (01) ==
LOC: HO.HHCLNP 19:13
PROVIDERS: Visit Provider Nurse Practitioner Family
DX: N94.9 Unspecified condition associated with female genital organs and menstrual cycle (principal); R30.0 Dysuria
CPT/HCPCS: 36415; 81513; 87086; 87481; 87491; 87591; 87661

== ENCOUNTER → 2023-06-14 14:43 | Outpatient (BNVA) | payer MEDICAID, SELFPAY | PROVIDERS: Visit Provider Physician Assistant ==

== ENCOUNTER 2023-07-05 20:51 | Emergency (ER) | payer MEDICAID, SELFPAY ==
--- NOTE | ~2023-07-05 | US_ITS ---
EXAMINATION: US OBSTETRICAL ULTRASOUND CLINICAL INFORMATION: Vaginal spotting, cramping during . COMPARISON: None available. LMP: 05/21/2023. Gestational age by maternal dates is 6 weeks, 4 days. Estimated date of delivery by maternal dates is 02/25/2024. TECHNIQUE: Sonographic imaging of the pelvis is performed using transabdominal and transvaginal transducers. FINDINGS: The anteverted, anteflexed uterus has normal contour. There is a region of mild heterogeneity in the myometrium of the posterior uterine body, possible intramural leiomyoma, estimated size of 2.6 x 1.5 x 1.6 cm. The cervix is 3 cm in length. A few small nabothian cysts of the cervix are present. A gestational sac is seen within the endometrial cavity and it contains a pole and 0.3 cm yolk sac. The crown-rump length is 0.32 cm, corresponding to estimated gestational age of 6 weeks, 0 days and estimated date of delivery of 02/29/2024. heart rate is 110 bpm. A trace amount of fluid seen inferior to the gestational sac occupies an area measuring up to 0.5 cm and this could represent a very small subchorionic hemorrhage. MATERNAL ADNEXA: The ovaries have normal size and echotexture. The right ovary is 2.3 x 1.5 x 1.8 cm and left ovary is 3.5 x 1.6 x 2.1 cm. Color Doppler images with spectral waveforms show presence of normal arterial flow within each ovary. A small, physiologic amount of simple-appearing free fluid is present in the pelvic cul-de-sac. US/US OB pelvic and transvaginal IMPRESSION: There is a single viable intrauterine gestation. The estimated gestational age is 6 weeks, 0 days and the estimated date of delivery of 02/29/2024. There appears to be a very small subchorionic bleed.
[2023-07-05 21:43] VITALS: BP 143/79; PULSE 81; RESP 18; TEMP 37.2; O2SAT 100; BMI 51.9
[2023-07-05 22:26] LABS: MANUAL DIFF FLAG NO
[2023-07-05 22:28] LABS: Basophils Percent Auto 0.2 % (0-2); Eosinophils Percent Auto 0.4 % (0-4); Hematocrit 38.4 % (37.0-47.0); Hemoglobin 12.6 g/dl (12.0-16.0); Imm Gran Abs Auto 0.01 X10*3/uL (0.00-0.03); Imm Gran Pct Auto 0.1 % (0.0-0.4); Lymphocytes Absolute Auto 2.4 X10*3/uL (1.2-4.9); Lymphocytes Percent Auto 25.1 % (20-40); Mean Corpuscular HGB Conc 32.8 g/dl (31.0-35.0); Mean Corpuscular Hemoglobin 27.3 pg (27.0-33.0); Mean Corpuscular Volume 83.3 fL (80.0-98.0); Mean Platelet Volume 10.6 fL (9.4-12.3); Monocytes Absolute Auto 0.8 X10*3/uL (0.1-1.2); Monocytes Percent Auto 7.9 % (2-11); Neutrophils Absolute Auto 6.4 x10*3/uL (2.0-8.3); Neutrophils Percent Auto 66.3 % (45-73); Platelet Count 262 X10*3/uL (160-400); Red Blood Count 4.61 X10*6/uL (4.20-5.50); Red Cell Distribution Width 13.9 % (11.0-16.0); White Blood Count 9.7 X10*3/uL (4.8-10.8)
[2023-07-05 22:53] LABS: Alanine Aminotransferase 19 U/L (0-31); Alkaline Phosphatase 56 U/L (39-117); Anion Gap 13 (12-20); Aspartate Amino Transferase 15 U/L (5-31); Bilirubin Total 0.3 mg/dL (0.0-1.0); Blood Urea Nitrogen 8 mg/dL (9-16); Carbon Dioxide 23 mmol/L (22-29); Chloride 107 mmol/L (96-108); Creatinine Clr Calc Pharmacy 165.8; Estimated Glomerular Filt Rate > 60; Glucose Random 82 mg/dL (60-115); Potassium 3.8 mmol/L (3.3-5.1); Sodium 139 mmol/L (135-145)
[2023-07-06 00:30] VITALS: BP 118/76; PULSE 78; RESP 18; TEMP 37.2; O2SAT 96
[2023-07-06 04:41] VITALS: BP 107/49; PULSE 79; RESP 16; O2SAT 100
--- NOTE | 2023-07-06 05:52 | ED_ITS ---
HPI - Abdominal Pain General Chief Complaint: Abdominal Pain Stated Complaint: w/a lot of cramping Time Seen by Provider: 07/06/23 05:46 Source: patient Mode of arrival: ambulatory Limitations: no limitations History of Present Illness HPI narrative: Patient comes to the emergency room complaining of abdominal cramping which started couple of days ago. Patient states that about a week ago she found out she is throughout test at home. Patient states that she has been having brownish spotting. Patient states that she has been cramping for about a week but in the last few days it has been getting worse. Patient states she has a A1 Patient denies any URI or UTI symptoms Related Data Previous Rx's Medication Instructions Recorded acetaminophen 500 mg tablet 1,000 mg (2 x 500 mg) PO Q6H PRN 10/11/22 (Tylenol Extra Strength) fever or pain #20 tabs Allergies Allergy/AdvReac Type Severity Reaction Status Date / Time No Known Allergies Allergy Verified 06/14/23 14:55 [facility] Past Medical History Surgical History (Updated 06/14/23 @ 14:56 by Jennifer Xiong CMA) No history of previous surgery Family History Family History (Updated 06/14/23 @ 14:57 by Jennifer Xiong CMA) Mother No problems noted. Father Diabetes Hypertension Daughter No problems noted. Son No problems noted. Social History Social History (Updated 06/14/23 @ 14:56 by Jennifer Xiong CMA) Alcohol intake: never Patient Tobacco Use Status: Never used Tobacco Advance Directives: No Advance Directives Information Provided: No Physical Exam ED Vital Signs: Vital Signs - 24 hr 07/05/23 21:43 07/06/23 00:30 07/06/23 00:30 Temperature 98.9 F 98.9 F 98.9 F Pulse Rate 81 78 78 Respiratory Rate 18 18 18 Blood Pressure 143/79 H 118/76 118/76 Pulse Oximetry 100 96 96 Oxygen Delivery Method Room Air Room Air Room Air 07/06/23 04:41 Temperature Pulse Rate 79 Respiratory Rate 16 Blood Pressure 107/49 L Pulse Oximetry 100 Oxygen Delivery Method Room Air BMI result Body Mass Index 51.9 Const Other: Appearance: Alert. Oriented X3. No acute distress. Eyes: Pupils equal, round and reactive to light. ENT: Pharynx normal. Neck: Normal inspection. Neck supple. No lymph nodes noted. No crepitus CVS: Normal heart rate and rhythm. Pulses normal. Normal S1 and S2 Respiratory: No respiratory distress. Breath sounds normal. No Wheezing. No rales Abdomen: Soft and nontender. No rigidity. No distention. Pelvic/: Cervix is closed, no bleeding seen Skin: Skin warm and dry. Normal skin color. Normal skin turgor. Extremities: No lower extremity edema. No Lacerations. No Rash Neuro: Oriented X 3. No motor deficit. No sensory deficit. Moving all extremities. No slurred speech. CN 2 through 12 grossly intact Psych: calm, cooperative, normal affect Medical Decision Making Medical Decision Making [facility] Narrative: My interpretation of labs: Normal white blood cell count, hematology and chemistry. HCG positive, 21,470 -ultrasound pending. I discussed the ultrasound with our brewing technician, there is a single intrauterine , heart rate present. There may be a possible subchorionic bleed present. Official report pending. -at this time, patient is stable -patient already has OB care for this , being seen at Dr. Umana's office -please f/u ABO and US, sign out given to my colleage Dr. Godinez Differential Diagnosis Differential Diagnoses: The differential diagnosis associated with the presentation includes (Subchorionic bleed, threatened ) Lab Data [facility] Lab Attestation statement: I reviewed the patient's lab results. 07/05/23 22:09 07/05/23 22:09 Labs: Lab Results 07/05/23 07/06/23 Range/Units 22:09 05:53 WBC 9.7 (4.8-10.8) X10*3/uL RBC 4.61 (4.20-5.50) X10*6/uL Hgb 12.6 (12.0-16.0) g/dl Hct 38.4 (37.0-47.0) % MCV 83.3 (80.0-98.0) fL MCH 27.3 (27.0-33.0) pg MCHC 32.8 (31.0-35.0) g/dl RDW 13.9 (11.0-16.0) % Plt Count 262 (160-400) X10*3/uL MPV 10.6 (9.4-12.3) fL Immature Gran % (Auto) 0.1 (0.0-0.4) % Neut % (Auto) 66.3 (45-73) % Lymph % (Auto) 25.1 (20-40) % [place] % (Auto) 7.9 (2-11) % Eos % (Auto) 0.4 (0-4) % Baso % (Auto) 0.2 (0-2) % Lymph # (Auto) 2.4 (1.2-4.9) X10*3/uL [place] # (Auto) 0.8 (0.1-1.2) X10*3/uL Eos # (Auto) 0.0 (0.0-0.4) X10*3/uL Baso # (Auto) 0.0 (0.0-0.2) X10*3/uL Abs Immat Gran (auto) 0.01 (0.00-0.03) X10*3/uL Absolute Neuts (auto) 6.4 (2.0-8.3) x10*3/uL Absolute Nucleated RBC 0.000 (0.0-0.012) X10*3/uL Nucleated RBC % (auto) 0.0 (0.0-0.2) /100WBC Sodium 139 (135-145) mmol/L Potassium 3.8 (3.3-5.1) mmol/L Chloride 107 (96-108) mmol/L Carbon Dioxide 23 (22-29) mmol/L Anion Gap 13 (12-20) BUN 8 L (9-16) mg/dL Creatinine 0.65 (0.5-1.4) mg/dL Estim Creat Clear Calc 165.8 Estimated GFR > 60 Random Glucose 82 (60-115) mg/dL Calcium 10.0 (8.4-10.2) mg/dL Total Bilirubin 0.3 (0.0-1.0) mg/dL AST 15 (5-31) U/L ALT 19 (0-31) U/L Alkaline Phosphatase 56 (39-117) U/L Total Protein 7.0 (6.5-8.0) g/dL Albumin 4.0 (3.5-5.0) g/dL Beta HCG, Quant 45518 mIU/mL Urine Color Yellow Urine Appearance Clear Urine pH 6.0 (5.0-9.0) Ur Specific [place] 1.025 (1.005-1.025) Urine Protein Negative (Neg-Trace) mg/dL Urine Glucose (UA) Negative (Negative) mg/dL Urine Ketones Negative (Negative) mg/dL Urine Blood Negative (Negative) Urine Nitrite Negative (Negative) Ur Leukocyte Esterase Negative (Negative) Urine RBC 0-2 (0-2) /HPF Urine WBC 0-5 (0-5) /HPF Ur Squamous Epith Cells 3-5 (0-2) /HPF Urine Bacteria None Seen (None Seen) Hyaline Casts 0-2 (0-2) /LPF Urine Test POSITIVE H (NEGATIVE) Independent Interpretation I performed an independent interpretation of an: Ultrasound Discharge Plan Discharge Clinical Impression: , threatened Patient Disposition: Home, Self-Care Instructions: Threatened Miscarriage (ED) Additional Instructions: Please follow-up with your primary care physician tomorrow. If you have any worsening or new symptoms, please return to the emergency room or call 911 Prescriptions: No Action acetaminophen [Tylenol Extra Strength] 500 mg tablet 1,000 mg PO Q6H PRN (Reason: fever or pain) Qty: 20 0RF Referrals: Jeovany Umana MD [Physician] - 07/07/23
[2023-07-06 05:59] LABS: Appearance Urine Clear; Color Urine Yellow; Glucose Urine UA Negative (Negative); Leukocyte Esterase Urine Negative (Negative); Nitrite Urine Negative (Negative); Specific Gravity - Urine 1.025 (1.005-1.025); Urine Blood Negative (Negative); Urine Ketones Negative (Negative); Urine Protein Negative (Neg-Trace)
[2023-07-06 06:00] LABS: UPreg QC Valid YES; Urine Pregnancy POSITIVE (NEGATIVE)
[2023-07-06 06:04] LABS: Bacteria Urine None Seen (None Seen); Hyaline Casts Urine 0-2 /LPF (0-2); RBC Urine 0-2 /HPF (0-2); WBC Urine 0-5 /HPF (0-5)
[2023-07-06 08:41] VITALS: BP 112/46; PULSE 82; RESP 18; TEMP 36.5; O2SAT 100
[2023-07-06 10:00] VITALS: BP 128/77; PULSE 78; RESP 18; O2SAT 98
[2023-07-06 10:07] VITALS: BP 128/77; PULSE 78; RESP 18; TEMP 36.6; O2SAT 98
== END 2023-07-06 10:09 | disposition home or self-care (01) ==
PROVIDERS: Emergency Provider Emergency Medicine
DX: O20.0 Threatened abortion (principal); Z3A.00 Weeks of gestation of pregnancy not specified
CPT/HCPCS: 36415; 76801; 76817; 80053; 81001; 81025; 84702; 85025; 86900; 86901; 99284

== ENCOUNTER 2024-10-11 18:04 | Emergency (ER) | payer OTHER, MEDICAID, SELFPAY ==
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
--- NOTE | ~2024-10-11 | XR_ITS ---
CLINICAL HISTORY: pain 3 views lumbar spine Comparison: None provided Findings: Normal alignment. No acute fractures or dislocation. No significant degenerative change. IMPRESSION: No acute findings. This document has been electronically signed by: Yossi Underwood MD on 10/11/2024 20:00:11
[2024-10-11 18:26] VITALS: BP 145/84; PULSE 113; RESP 18; TEMP 36.3; O2SAT 97; BMI 55.1
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
[2024-10-11 21:25] VITALS: BP 110/66; PULSE 84; RESP 20; TEMP 36.5; O2SAT 100
--- NOTE | 2024-10-11 21:31 | PC.NURSE ---
medicated per mar, reviewed discharge instructions with pt. pt verbalized understanding, no sign of distress upon discharge.
[2024-10-11 21:33] VITALS: BP 110/66; PULSE 84; RESP 20; TEMP 36.5; O2SAT 100
== END 2024-10-11 21:33 | disposition home or self-care (01) ==
PROVIDERS: Emergency Provider Emergency Medicine Emergency Medical Services
DX: S39.012A Strain of muscle, fascia and tendon of lower back, initial encounter (principal); M54.9 Dorsalgia, unspecified; V43.52XA Car driver injured in collision with other type car in traffic accident, initial encounter; Y93.9 Activity, unspecified; Y92.9 Unspecified place or not applicable; Y99.9 Unspecified external cause status
CPT/HCPCS: 72072; 72100; 99283; 99284

== ENCOUNTER → 2024-10-11 18:32 | Outpatient (BNV) | payer MEDICAID, SELFPAY | PROVIDERS: Visit Provider Student in an Organized Health Care Education/Training Program | DX: M54.50 Low back pain, unspecified (principal); M54.6 Pain in thoracic spine | CPT/HCPCS: 72072; 72100 ==

== ENCOUNTER 2024-11-09 15:11 | Outpatient (REF) | payer MEDICAID, SELFPAY ==
--- OUTSIDE RECORDS SUMMARY | 2024-11-09 15:15 | XMS_ITS | Clinical Summary ---
Author Organization [email or web address] Address [address] [place] [address] Care Team Providers Care Back Maker Name Role Phone Tg Lujan NP Primary Care Provider [phone] Allergies No known active allergies Medications * This document contains information received from the source organization and may not represent a complete record from that organization. Blood Pressure Monitor kitIndications: Elevated BP without diagnosis of hypertension 1 each 2 times daily. 1 kit 09/18/19 Active Additional Information Patient not taking.Reported on 05/31/2023 acetaminophen (Tylenol) 500 MG tabletIndicatio ns:COVID-19 virus infection Take 2 tablets (1,000 mg) by mouth every 6 (six) hours if needed for moderate pain or fever for up to 25 doses. 50 tablet 05/12/19 23 2024 Discontinued(M ed list cleanup (will not trigger notification to Pharmacy)) multivitamin () 27-0.8 MG tablet Take 1 tablet by mouth in the morning. 30 tablet 06/29/19 24 2024 Discontinued(M ed list cleanup (will not trigger notification to Pharmacy)) Sleep-Aid 25 MG tablet Take 25 mg by mouth if needed at bedtime for sleep. 08/01/19 24 2024 Discontinued(M ed list cleanup (will not trigger notification to Pharmacy)) pyridoxine (Vitamin B-6) 25 MG tablet Take 25 mg by mouth 3 times daily. As needed for nausea/vomitin g 08/01/19 24 2024 Discontinued(M ed list cleanup (will not trigger notification to Pharmacy)) loratadine (Claritin) 10 MG tablet Take 1 tablet (10 mg) by mouth Once per day. 30 tablet 11 05/30/19 25 2024 Discontinued(M ed list cleanup (will not trigger notification to Pharmacy)) Active Problems Problem Noted Date Diagnosed Date Health care maintenance 09/29/2022 Overview (09/29/2022): Routine Health Maintenance: Immunizations: Up to date HIV: Nonreactive 11/01/2012 Hep C: Nonreactive 11/01/2012 Hepatitis B: Nonreactive 11/01/2012 Pap Smear: 09/02/21 NILM HPV neg; repeat 5 years 2026 Mammogram: Not due yet Lung cancer: non smoker Eye: Wears eyeglasses, last visit 2022 Dental: 2020 Assessment & Plan (09/29/2022 9:29 PM EDT): See above plan Insomnia 12/20/2014 Assessment & Plan (10/24/2024 11:09 AM EDT): -sleep hygiene measures reviewed: keep a consistent bed and awakening time; avoid coffee, caffinated drink or foods right before bed; avoid looking at phone or TV 30 min before bed; engage in daily physical activity 4-6 hrs before bed; keep the place where you sleep quiet and dark use a white noise machine or ear plugs to block out sound if needed -patient advised to sleep with cell phone outside her room; to prevent sound- wave distrubance. -gentle stretching/ meditate before bed Visual impairment 03/30/2013 Depressive disorder 10/25/2011 Chronic bilateral low back pain without sciatica 10/25/2011 Overview (09/29/2022): Chronic back pain Assessment & Plan (09/29/2022 9:44 PM EDT): Will refer to PT Rx Voltaren gel and Lidocaine patches Followup PRN Obesity 10/25/2011 Assessment & Plan (10/24/2024 11:10 AM EDT): -discussed pharmacological options for weight loss and new insurance requirements -patient may be candidate for GLP injections bypassing phentermine trial pending BP readings -discussed importance of lifestyle and dietary changes along with emotional stability towards a successful weight loss journey - consulted to assist with anxiety Dietary Recommendations: Fruits, vegetables, whole grains, protein foods, and fat-free or low-fat dairy products are healthy choices. Eat different types of protein foods in your diet. This can include seafood, lean meats, poultry, beans, peas, lentils, nuts, seeds, soy products, and eggs. Limit foods and beverages higher in added sugars, saturated fat, and sodium. Exercise Recommendations: At least 150 minutes of moderate-intensity physical activity per week, or an equivalent combination of moderate- and vigorous-intensity activity -scheduled follow-up for further discussion. In the interim, metabolic labs ordered and referral to nutrition placed Assessment & Plan (09/29/2022 9:25 PM EDT): Will refer pt to Weight mgmt Encouraged diet and exercise Followup PRN Encounters * This document contains information received from the source organization and may not represent a complete record from that organization. Date Type Department Care Team Description 11/09/2024 1:45 PM EDT Office Visit [address] [address] Tg Lujan NP Class 3 severe obesity due to excess calories without serious comorbidity with body mass index (BMI) of 50.0 to 59.9 in adult (Primary Dx) 11/09/2024 Travel 11/07/[address] [address] Quan Brown [place] CHARTPREP 10/26/[address] [address] Tg Lujan NP Care Management (C3 TC #2-lvm) 10/24/2024 10:00 AM EDT Office Visit [address] [address] Tg Lujan NP Encounter to establish care (Primary Dx); Elevated blood pressure reading; Class 3 severe obesity due to excess calories without serious comorbidity with body mass index (BMI) of 50.0 to 59.9 in adult; Encounter for health-related screening; Dietary counseling; Exercise counseling; Insomnia, unspecified type; Mixed anxiety and depressive disorder 10/24/2024 Travel 10/23/2024 Patient Outreach [facility] [address] [place] [address] Tg Lujan NP Care Coordination (C3/CHW YNES Caruso-LVM-TP appt reminder) 10/23/[address] [address] Quan Brown [place] CHARTPREP 10/16/2024 Patient Outreach [facility] & PEDS [address] [place], [place] [id number] Tg Lujan NP Pre-visit Planning (SDOH will need to be completed in office. ) 10/01/2024 Telephone [facility] [address] [place] [address] Tg Lujan NP Care Management (C3CM TC #1-lvm) 09/04/[address] [address] Tg Lujan NP Care Management (C3CM follow up call) 09/04/2024 Travel 08/20/2024 Outside Procedure [facility] OPTOM[facility] [address] [place] [address] Benjamin, Jahaira, OD Myopia of both eyes (Primary Dx); Regular astigmatism of both eyes from Last 3 Months Immunizations Immunization Administration Dates Next Due DTaP 04/29/1997, 4,01/04/1993,02/24,1991 HPV, Quadrivalent 08/04/2009,08/28/2008,08/29/19 08 Hep B, Adolescent or Pediatric 11/07/2003,2001,04/29/1997 Hib (HbOC) 02/25/1992,1991 IPV 04/29/1997, 3,02/25/1992,12/25 Influenza injectable quadriv alent IIV4 with preservative 01/26/2017,12/20/2014 Influenza injectable quadriv alent preservative free 04/05/2019 Influenza, Split (incl. mary alice fied surface antigen) 01/16/2013 MMR 06/20/1993,01/04/1993 Meningococcal MCV4P [id number] 08/29/2007 Moderna Covid-19 Vaccine 12+ 04/27/2021,03/30/20 21 TD (adult), 2 Lf tetanus tox oid, preservative free, adsorbed 01/26/2017,10/04/2001 Tdap 04/05/2019 Varicella 10/04/2001 Family History Medical History Relation Name Comments Diabetes Father Hypertension Father Cancer Mother's Brother Relation Name Status Comments Father Mother's Brother Social History Tobacco Use Types Packs/Day Years Used Date Smoking Tobacco: Never Passive Smoke Exposure: Never Smokeless Tobacco: Never Tobacco Cessation:Counseling Given: Not Answered Alcohol Use Standard Drinks/Week Comments Never 0 (1 standard drink = 0.6 oz pur e alcohol) Depression Answer Date Recorded Patient Health Questionnaire-9 Score 5 10/24/2024 Patient Health Questionnaire-9 Score 5 10/24/2024 Last PHQ-9: Questionnaire Data Not on file 0 10/24/2024 Housing Stability Answer Date Recorded What is your housing situation today? I have stanley massey 10/24/[address] you li ve. Do you have problems with any of the following? None of the above 10/24/2024 Food Insecurity Answer Date Recorded Within the past 12 months, y ou worried that your food would run out before you got money to buy more: Never True 10/24/2024 Within the past 12 months,th e food you bought just didn't last and you didn't have enough money to get more: Never True Transportation Answer Date Recorded In the past 12 months, has l ack of transportation kept you from medical appts, meetings, work or from getting things needed for daily living? No 10/24/2024 Utilities Answer Date Recorded In the past 12 months, has t he electric, gas, oil or water company threatened to shut off services in your home? Yes 10/24/2024 Depression Answer Date Recorded Patient Health Questionnaire-2 Score 1 10/24/2024 Internet Access Answer Date Recorded Internet Access Q1 Yes 10/24/2024 Internet Access Q2 Not on file 10/24/2024 Comments Unknown Sex and Gender Information Value Date Recorded Sex Assigned at Female 02/01/2022 10:16 AM EDT Legal Sex Female 10:16 AM EDT Gender Identity Female 02/01/2022 10:16 AM EDT Sexual Orientation Don't know 02/01/2022 10 :16 AM EDT Last Filed Vital Signs Vital Sign Reading Time Taken Comments Blood Pressure 130/88 11/09/2024 2:15 PM EDT Pulse 88 11/09/2024 2:15 PM EDT Temperature 36.7 C (98.1 F) 11/09/2024 2:15 PM EDT Respiratory Rate 23 11/09/2024 2:15 PM EDT Oxygen Saturation 99% 11/09/2024 2:15 PM EDT Inhaled Oxygen Concentration - - Weight 144 kg (317 lb 3.2 oz) 11/09/2024 2:15 PM EDT Height 160 cm (5' 3 ) 11/09/2024 2:15 PM EDT Body Mass Index 56.19 11/09/2024 2:15 PM EDT Plan of Treatment Health Maintenance Due Date Last Done Comments Family Planning (PISQ) 2006 COVID-19 Vaccine ( season) 2023 04/27/2021, 03/30/2021 Influenza Vaccine (#1) 2024 , 02/18/2024, 04/05/2019, Additional history exists Alcohol/Substance Use Screening 10/24/2025 10/24/2024 Depression Screening 10/24/2025 10/24/2024, 10/25/19 Disability Screening 10/24/2025 10/24/2024 SDOH Screening 10/24/2025 10/24/2024 Tobacco Screening 10/24/2025 10/24/2024 Lipid Panel 09/18/2027 09/17/2022 Cervical Cancer Screening 09/21/2028 HPV/Cotest 09/21/2028 09/22/2023, 09/02/2021 Pap Smear 09/21/2028 09/22/2023, 09/02/2021 DTaP/Tdap/Td Vaccines (8 - Td or Tdap) 01/04/2034 01/05/2024, 04/05/2019, 01/26/2017, Additional history exists Zoster Vaccines (1 of 2) 2041 HIB Vaccines Aged Out 02/25/1992, 1991 No lo nger eligible based on patient's age to complete this topic IPV Vaccines Completed 04/29/1997, 06/1992, 02/25/1992, Additional history exists Hepatitis B Vaccines Completed 11/07/2003, 10/04/2001, 04/29/1997 Meningococcal Vaccine Completed 08/29/2007 HPV Vaccines Completed 08/04/2009, 08/03, 08/29/2007 HIV Screening Completed 09/17/2022 Hepatitis C Screening Completed 09/17/2022 RSV Patients and Patients Aged 60 years or older Completed 01/10/2024 Hepatitis A Vaccines Aged Out No long er eligible based on patient's age to complete this topic Meningococcal B Vaccine Aged Out No l onger eligible based on patient's age to complete this topic Pneumococcal Vaccine: Pediatrics (0 to 5 Years) and At-Risk Patients (6 to 49) Years Aged Out No longer eligible based on patient's age to complete this topic RSV under 20 months Aged Out No longe r eligible based on patient's age to complete this topic Rotavirus Vaccines Aged Out No longer eligible based on patient's age to complete this topic Procedures Procedure Name Priority Date/Time Associated Diagnosis Comments PAP/HPV Routine 09/22/2023 HEPATITIS C AB W/REFL TO HCV RNA, QN, PCR Routine 09/17/2022 10:52 AM EDT Encounter for well adult exam without abnormal findings HIV 1/2 ANTIGEN/ANTIBODY, FOURTH GENERATION W/RFL Routine 09/17/2022 10:52 AM EDT Encounter for well adult exam without abnormal findings LIPID PANEL, STANDARD Routine 09/17/2022 10:52 AM EDT Encounter for well adult exam without abnormal findings from Last 3 Months or Most Recently Relevant to Health Maintenance Results * PAP/HPV (09/22/2023) Pap Smear 1. NILM 1. NILM HPV Not Detected Undetected, Indeterminat e, Quantitative , Not Detected Historical Provider HEALTH MAINTENANCE Final Result * Hepatitis C Antibody with Reflex to HCV, RNA, Quantitative, Real-Time PCR (09/17/2022 10:52 AM EDT) Hepatitis C Antibody NON-REACT ELIA NON-REACT ELIA [facility] [employer] [place] [facility] Index 0.12 <1.00 [facility] [employer] [place] [facility] Comment: HCV antibody was non-reactive. There is no laboratory evidence of HCV infection. In most cases, no further action is required. However, if recent HCV exposure is suspected, a test for HCV RNA (test code 55752) is suggested. For additional information please refer to http://education.DoubleBeam/faq/AHS50m3 (This link is being provided for informational/ educational purposes only.) Blood Venous blood specimen / Unknown 09/17/2022 10:52 AM EDT 09/17/2022 10:52 AM EDT Narrative [facility] - 09/20/2022 4:19 PM EDT FASTING:YES FASTING: YES Radha Doherty CUT OUT AND MARKING MACHINE OPERATOR LAB BLOOD ORDERABLES Final Result [facility] [address], [place] [address] [facility] [employer] [place] [facility] [address] [place] [address] * HIV-1/2 Antigen and Antibodies, Fourth Generation, with Reflexes (09/17/2022 10:52 AM EDT) Pathologist [facility] HIV Antigen/Antibody, 4th Generation NON-REAC TIVE NON-REAC TIVE [facility] [employer] [place] [facility] Comment: HIV-1 antigen and HIV-1/HIV-2 antibodies were not detected. There is no laboratory evidence of HIV infection. PLEASE NOTE: This information has been disclosed to you from records whose confidentiality may be protected by state law. If your state requires such protection, then the state law prohibits you from making any further disclosure of the information without the specific written consent of the person to whom it pertains, or as otherwise permitted by law. A general authorization for the release of medical or other information is NOT sufficient for this purpose. For additional information please refer to http://Wallarm.DoubleBeam/faq/LAZ036 (This link is being provided for informational/ educational purposes only.) The performance of this assay has not been clinically validated in patients less than 2 years old. Blood Venous blood specimen / Unknown 09/17/2022 10:52 AM EDT 09/17/2022 10:52 AM EDT Narrative [facility] - 09/20/2022 4:19 PM EDT FASTING:YES FASTING: YES Radha Doherty [facility] LAB BLOOD ORDERABLES Final Result [facility] [address], [place] [address] [facility] [employer] [place] [facility] [address] [place] [address] * (ABNORMAL) Lipid Panel, Standard (09/17/2022 10:52 AM EDT) [facility] Cholesterol, Total 185 <200 mg/dL [facility] [employer] [place] [facility] HDL Cholesterol 57 > OR = 50 mg/dL [facility] [employer] [place] [facility] Triglycerides 71 <150 mg/dL [facility] [place] [facility] LDL Cholesterol 112(H) mg/dL (calc) [facility] [place] [facility] Comment: Reference range: <100 Desirable range <100 mg/dL for primary prevention; <70 mg/dL for patients with CHD or diabetic patients with > or = 2 CHD risk factors. LDL-C is now calculated using the Radha calculation, which is a validated novel method providing better accuracy than the Friedewald equation in the estimation of LDL-C. Shin ALVARADO et al. TRINY. 2013;310(19): 8667-9982 (http://education.PerioSeal/faq/OCK936) Chol/HDLC Ratio 3.2 <5.0 (calc) [facility] Non-HDL Cholesterol 128 <130 mg/dL (calc) [facility] Comment: For patients with diabetes plus 1 major ASCVD risk factor, treating to a non-HDL-C goal of <100 mg/dL (LDL-C of <70 mg/dL) is considered a therapeutic option. Blood Venous blood specimen / Unknown 09/17/2022 10:52 AM EDT 09/17/2022 10:52 AM EDT Narrative [facility] - 09/20/2022 4:19 PM EDT FASTING:YES FASTING: YES Radha Roa Chas CUT OUT AND MARKING MACHINE OPERATOR LAB BLOOD ORDERABLES Final Result [facility] [address], [place] [address] [facility] [address] [place] [address] from Last 3 Months or Most Recently Relevant to Health Maintenance Insurance [employer] C3 Care Teams Back Maker Relationship Specialty Start Date End Date Tg Lujan NP [address] [place] [address] PCP - General Family Medicine 01/07/23 [employer] Operator 08/09/23
[2024-11-09 16:44] LABS: MANUAL DIFF FLAG NO
[2024-11-09 17:06] LABS: Alanine Aminotransferase 74 U/L (0-31); Albumin Level 4.3 g/dL (3.5-5.0); Alkaline Phosphatase 91 U/L (39-117); Anion Gap 9 (12-20); Aspartate Amino Transferase 62 U/L (5-31); Blood Urea Nitrogen 9 mg/dL (9-16); Calcium 9.1 mg/dL (8.4-10.2); Carbon Dioxide 27 mmol/L (22-29); Chloride 106 mmol/L (96-108); Cholesterol 167 mg/dL (<200); Estimated Glomerular Filt Rate > 60; HDL Cholesterol 52 mg/dL (>40); Potassium 4.1 mmol/L (3.3-5.1); Sodium 138 mmol/L (135-145); Total Protein 6.9 g/dL (6.5-8.0); Triglycerides 94 mg/dL (<150)
[2024-11-09 17:15] LABS: Hemoglobin A1C 117.2347 umol/L; Total Hemoglobin (HGBA1C) 3295.5297 umol/L
[2024-11-09 17:27] LABS: Hematocrit 36.5 % (37.0-47.0); Hemoglobin 12.1 g/dl (12.0-16.0); Imm Gran Abs Auto 0.02 X10*3/uL (0.00-0.03); Imm Gran Pct Auto 0.2 % (0.0-0.4); Lymphocytes Absolute Auto 2.3 X10*3/uL (1.2-4.9); Mean Corpuscular HGB Conc 33.2 g/dl (31.0-35.0); Mean Corpuscular Hemoglobin 26.6 pg (27.0-33.0); Mean Corpuscular Volume 80.2 fL (80.0-98.0); NRBC Abs Auto 0.000 X10*3/uL (0.0-0.012); NRBC Pct Auto 0.0 /100WBC (0.0-0.2); Platelet Count 265 X10*3/uL (160-400); Red Blood Count 4.55 X10*6/uL (4.20-5.50); White Blood Count 8.2 X10*3/uL (4.8-10.8)
== END 2024-11-09 15:12 | disposition home or self-care (01) ==
LOC: HO.HHCL 15:11
PROVIDERS: Visit Provider Nurse Practitioner
DX: Z13.89 Encounter for screening for other disorder (principal); E66.813 Obesity, class 3; Z68.43 Body mass index [BMI] 50.0-59.9, adult
CPT/HCPCS: 36415; 80053; 80061; 83036; 84443; 85025